=== PATIENT | female | born 1995 | race African-American/Black ===

== ENCOUNTER 2017-02-06 08:50 | Emergency (ER) | payer BC ==
[2017-02-06 09:02] VITALS: BP 116/71; PULSE 84; TEMP 98.4; BMI 24.4
--- NOTE | 2017-02-06 10:03 | PDOC ---
History of Present Illness - General Chief Complaint: Sore Throat Stated Complaint: SORE THROAT, HEADACHES (25 WKS ) Time Seen by Provider: 02/06/17 09:51 History Source: Patient Exam Limitations: No Limitations - History of Present Illness Initial Comments: 02/06/17 09:58 Patient is , no complaints of abdominal pain, drainage, or complication with but comes in with complaints of sore throat pain runny nose, general body aches. Denies fever, denies purulent drainage from nose, denies exudate on tonsils. No one at home is ill. Is not working now. His taken nothing for relief of symptoms. 02/06/17 13:27 Timing/Duration: unsure, 24 hours Severity: mild Associated Symptoms: reports: loss of appetite, malaise. denies: fever/chills, nausea/vomiting Past History - Travel Traveled outside of the country in the last 30 days: No Close contact w/someone who was outside of country & ill: No - Past Medical History Allergies/Adverse Reactions: Allergies Allergy/AdvReac Type Severity Reaction Status Date / Time No Known Allergies Allergy Verified 02/06/17 09:02 Home Medications: Ambulatory Orders NK [No Known Home Medication] 02/06/17 Asthma: Yes - Reproductive History (#): 1 Para: 0 Therapeutic (s) & number: No Spontaneous : 0 - Immunization History Immunization Up to Date: Yes - Psycho/Social/Smoking Cessation Hx Anxiety: No Suicidal Ideation: No Smoking Status: No Smoking History: Never smoked Number of Cigarettes Smoked Daily: 0 Information on smoking cessation initiated: No Hx Alcohol Use: No Drug/Substance Use Hx: No Substance Use Type: None Review of Systems - Review of Systems Able to Perform ROS?: Yes Is the patient limited [place] Verdean proficient: Yes Constitutional: Yes: Symptoms Reported, See HPI, Chills, Malaise HEENTM: Yes: Symptoms Reported, See HPI, Nose Congestion, Throat Pain Respiratory: Yes: Symptoms reported, See HPI, Cough (nonproductive). No: Shortness of Breath, Wheezing, Productive cough ABD/GI: No: Symptoms Reported : Yes: Symptoms Reported Musculoskeletal: No: Symptoms Reported Integumentary: Yes: Symptoms Reported Neurological: Yes: Symptoms reported, See HPI All Other Systems: Reviewed and Negative *Physical Exam - Vital Signs Last Vital Signs Temp Pulse Resp BP Pulse Ox 98.4 F 84 18 116/71 98 02/06/17 09:00 02/06/17 09:00 02/06/17 09:00 02/06/17 09:00 02/06/17 09:00 - Physical Exam General Appearance: Yes: Nourished, Appropriately Dressed, Apparent Distress, Mild Distress HEENT: positive: CHANEL, Normal ENT Inspection, Normal Voice, TMs Normal ( ingested but landmarks easily visualized), Pharynx Normal (no redness, swelling or exudate Airways patent, has some mild posterior sinus drainage that is whitish clear in color), Nasal Congestion (clear), Rhinorrhea. negative: Pharyngeal Erythema, Sinus Tenderness, TM Bulging Neck: positive: Supple. negative: Tender, Lymphadenopathy (R), Lymphadenopathy (L) Respiratory/Chest: positive: Lungs Clear. negative: Normal Breath Sounds, Crackles, Rales, Wheezing Cardiovascular: positive: Regular Rate Gastrointestinal/Abdominal: positive: Soft. 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 Will treat conservatively as patient is and has no evidence of bacterial infection. 02/06/17 13:30 *DC/Admit/Observation/Transfer Diagnosis at time of Disposition: Common cold virus - Discharge Dispostion Disposition: HOME Condition at time of disposition: Stable Admit: No - Referrals Referrals: Rudy Mtz MD [Primary Care Provider] - - Patient Instructions Printed Discharge Instructions: DI for Common Cold Additional Instructions: Rest, drink lots of fluids: Teas, water, soups, Pedialyte Saltwater gargles Steamy showers/seem to face break up mucus Avoid contact with others until fevers and cough resolved Lots of handwashing and good hygiene Continue [id number] medications for symptomatic relief Tylenol for fever and pain Followup with private physician in one to 2 days as needed Return to emergency department for worsened symptoms, fevers, dehydration
== END 2017-02-06 10:45 | disposition home or self-care (01) ==
LOC: JERFT 08:50
DX: J00 Acute nasopharyngitis [common cold] (principal); Z3A.25 25 weeks gestation of pregnancy
CPT/HCPCS: 99281-25

== ENCOUNTER 2017-08-04 23:30 | Emergency (ER) | payer BC ==
[2017-08-05] MEDS ORDERED: AZITHROMYCIN 250 MG TABLET PO STA (00:13)
--- NOTE | 2017-08-05 00:13 | PDOC ---
History of Present Illness - General History Source: Patient <Maurice Carranza - Last Filed: 08/05/17 00:15> - General History Source: Patient Exam Limitations: No Limitations - History of Present Illness Initial Comments: 08/05/17 00:21 The patient is a 22 year old female, with significant past medical history of asthma, who presents to the emergency room complaining of a 1day of a sore throat and a left ear ache. Denies nasal congestion. Denies fever, chills, nausea, vomiting. Denies cough, SOB. Denies sick contacts. Denies recent travel. The patient does not have a PCP. <Winifred Meadows - Last Filed: 08/05/17 00:24> - General Stated Complaint: SORE THROAT Time Seen by Provider: 08/05/17 00:13 Past History - Past Medical History Asthma: Yes - Reproductive History (#): 1 Para: 0 Therapeutic (s) & number: No Spontaneous : 0 - Immunization History Immunization Up to Date: Yes - Psycho/Social/Smoking Cessation Hx Anxiety: No Suicidal Ideation: No Smoking Status: No Smoking History: Never smoked Number of Cigarettes Smoked Daily: 0 Hx Alcohol Use: No Drug/Substance Use Hx: No Substance Use Type: None <CocoStaceyMaurice - Last Filed: 08/05/17 00:15> <Winifred Meadows - Last Filed: 08/05/17 00:24> - Past Medical History Allergies/Adverse Reactions: Allergies Allergy/AdvReac Type Severity Reaction Status Date / Time No Known Allergies Allergy Verified 08/05/17 00:20 Home Medications: Ambulatory Orders Azithromycin [Zithromax -] 250 mg PO UTDICT #6 tab 08/05/17 Review of Systems - Review of Systems Able to Perform ROS?: Yes Comments:: 08/05/17 00:22 CONSTITUTIONAL: Absent: fever, no chills, no fatigue EYES: Absent: visual changes ENT: Present: sore throat, left sided earache CARDIOVASCULAR: Absent: chest pain, no palpitations RESPIRATORY: Absent: cough, no SOB GI: Absent: abdominal pain, no nausea, no vomiting, no constipation, no diarrhea GENITOURINARY: Absent: dysuria, no frequency, no hematuria MUSCULOSKELETAL: Absent: back pain, no arthralgia, no myalgia SKIN: Absent: rash <Winifred Meadows - Last Filed: 08/05/17 00:24> *Physical Exam - Physical Exam Comments: 08/05/17 00:23 GENERAL: Well-appearing, well-nourished. No apparent distress. HEENT: +voice is hoarse. Tonsils are slightly erythematous. There is fluid in the lower portion of the left tympanic membrane. PERRL, EOM intact. CARDIOVASCULAR: Normal S1, S2. Regular rate and rhythm. PULMONARY: Clear to auscultation bilaterally. ABDOMEN: Soft, non-distended, non-tender. EXTREMITIES: Normal ROM in all four extremities. No gross deformities. SKIN: Warm, dry. No rash NEUROLOGICAL: No focal neurological deficits. <Winifred Meadows - Last Filed: 08/05/17 00:24> *DC/Admit/Observation/Transfer - Discharge Dispostion Admit: No <Maurice Carranza - Last Filed: 08/05/17 00:15> - Attestations Scribe Attestion: 08/05/17 00:23 Documentation prepared by HAL Loomis, acting as medical care evaluation specialist for Maurice Carranza MD. <Winifred Meadows - Last Filed: 08/05/17 00:24> Diagnosis at time of Disposition: Pharyngitis Qualifiers: Pharyngitis/tonsillitis etiology: other specified organisms Qualified Code(s): J02.8 - Acute pharyngitis due to other specified organisms - Prescriptions Prescriptions: Azithromycin [Zithromax -] 250 mg PO UTDICT #6 tab - Patient Instructions Printed Discharge Instructions: DI for Pharyngitis/Tonsillopharyngitis -- Adult
[2017-08-05] MEDS ORDERED: AZITHROMYCIN 250 MG TABLET ONE (00:22)
[2017-08-05 00:28] VITALS: BP 125/63; PULSE 67; TEMP 983.7; BMI 24.7
== END 2017-08-05 00:23 | disposition home or self-care (01) ==
LOC: JER 23:30
DX: J02.9 Acute pharyngitis, unspecified (principal)
CPT/HCPCS: 99281-25

== ENCOUNTER 2017-09-16 16:52 | Emergency (ER) | payer BC ==
[2017-09-16 17:01] VITALS: BP 118/63; PULSE 81; TEMP 98.4; BMI 25.7
--- NOTE | 2017-09-16 17:43 | PDOC ---
History of Present Illness - General Chief Complaint: Injury Stated Complaint: FALL INJURY Time Seen by Provider: 09/16/17 17:04 History Source: Patient Exam Limitations: No Limitations - History of Present Illness Initial Comments: 09/16/17 17:37 22 yr female slipped and fell on the floor injured her right hand today getting out of shower. no deformity or obvious swelling. 09/16/17 20:40 Past History - Past Medical History Allergies/Adverse Reactions: Allergies Allergy/AdvReac Type Severity Reaction Status Date / Time No Known Allergies Allergy Verified 09/16/17 17:01 Home Medications: Ambulatory Orders NK [No Known Home Medication] 09/16/17 Asthma: Yes - Reproductive History (#): 1 Para: 0 Therapeutic (s) & number: No Spontaneous : 0 - Immunization History Immunization Up to Date: Yes - Suicide/Smoking/Psychosocial Hx Smoking Status: No Smoking History: Never smoked Have you smoked in the past 12 months: No Number of Cigarettes Smoked Daily: 0 Hx Alcohol Use: No Drug/Substance Use Hx: No Substance Use Type: None Review of Systems - Review of Systems Able to Perform ROS?: Yes Is the patient limited Singaporean proficient: No Constitutional: No: Symptoms Reported HEENTM: No: Symptoms Reported Respiratory: No: Symptoms reported Cardiac (ROS): No: Symptoms Reported ABD/GI: No: Symptoms Reported : No: Symptoms Reported Musculoskeletal: Yes: Symptoms Reported *Physical Exam - Vital Signs Last Vital Signs Temp Pulse Resp BP Pulse Ox 98.4 F 81 20 118/63 100 09/16/17 16:57 09/16/17 16:57 09/16/17 16:57 09/16/17 16:57 09/16/17 16:57 - Physical Exam General Appearance: Yes: Nourished, Appropriately Dressed HEENT: positive: EOMI, CHANEL Neck: positive: Supple Respiratory/Chest: positive: Lungs Clear, Normal Breath Sounds Cardiovascular: positive: Regular Rhythm, Regular Rate Musculoskeletal: positive: Normal Inspection Extremity: positive: Normal Capillary Refill, Normal Inspection, Normal Range of Motion, Tender (base of fifth metatarsal nv intact FROM ) Integumentary: positive: Normal Color, Dry, Warm Neurologic: positive: Fully Oriented, Alert, Normal Mood/Affect, Normal Response , Motor Strength 5/5 ED Treatment Course - RADIOLOGY Radiology Studies Ordered: Category Date Time Status HAND- RIGHT [RAD] Stat Radiology 09/16/17 17:13 Ordered Medical Decision Making - Medical Decision Making 09/16/17 17:42 cc: right hand injury today slip and fall no deformity or swelling nv intact will get xray to r/o fracture 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 *DC/Admit/Observation/Transfer Diagnosis at time of Disposition: Contusion of hand, right Qualifiers: Encounter type: initial encounter Qualified Code(s): S60.221A - Contusion of right hand, initial encounter - Discharge Dispostion Disposition: HOME Condition at time of disposition: Good - Referrals Referrals: Rudy Mtz MD [Primary Care Provider] - Crow Foley MD [Staff Physician] - - Patient Instructions Additional Instructions: apply ice every 2-3hrs for 20 minutes for the next 2 days while awake this will help with pain and swelling take motrin as needed for pain (over the counter advil, ibuprofen or motrin) follow with the orthopedist if pain worsens
== END 2017-09-16 17:49 | disposition home or self-care (01) ==
LOC: JERFT 16:52
DX: S60.221A Contusion of right hand, initial encounter (principal); W01.0XXA Fall on same level from slipping, tripping and stumbling without subsequent striking against object, initial encounter; Y93.E1 Activity, personal bathing and showering; Y92.041 Bathroom in boarding-house as the place of occurrence of the external cause
CPT/HCPCS: 73130-TC-RT; 99281-25

== ENCOUNTER 2017-10-03 16:00 | Observation (INO) | payer BC ==
[2017-10-03 16:06] VITALS: BMI 25.3
[2017-10-03] MEDS ORDERED: SODIUM CHLORIDE 1,000 ML IV STA (17:01)
--- NOTE | 2017-10-03 17:17 | PDOC ---
History of Present Illness - General Chief Complaint: Syncope/Near Syncope Stated Complaint: NEAR SYNCOPE/SYNCOPE Time Seen by Provider: 10/03/17 16:39 History Source: Patient Exam Limitations: No Limitations - History of Present Illness Initial Comments: 10/03/17 17:12 Patient is a 22F with history of asthma and anemia here today complaining of two episodes of syncope. She states that around noon she was about to go to the bathroom before suddenly falling down and hitting her head on the toilet. Afterwards, she says that she developed a headache around her entire head. About an hour before presentation she says she was at work when she again syncopized. She again was down for a short period of time with no prodromal or post-ictal period. She says that she has had some shortness of breath and substernal chest tightness for the past four days. She takes OCPs. LMP 09/19. Past History - Past Medical History Allergies/Adverse Reactions: Allergies Allergy/AdvReac Type Severity Reaction Status Date / Time No Known Allergies Allergy Verified 10/03/17 16:01 Home Medications: Ambulatory Orders NK [No Known Home Medication] 09/16/17 Asthma: Yes - Reproductive History (#): 1 Para: 0 Therapeutic (s) & number: No Spontaneous : 0 - Immunization History Immunization Up to Date: Yes - Suicide/Smoking/Psychosocial Hx Smoking Status: No Smoking History: Never smoked Have you smoked in the past 12 months: No Number of Cigarettes Smoked Daily: 0 Hx Alcohol Use: No Drug/Substance Use Hx: No Substance Use Type: None Review of Systems - Review of Systems Comments:: 10/03/17 17:23 GENERAL/CONSTITUTIONAL: No fever or chills. No weakness. HEAD, EYES, EARS, NOSE AND THROAT: No change in vision. No sore throat. CARDIOVASCULAR: Positive for chest pain and shortness of breath. RESPIRATORY: No cough, wheezing, or hemoptysis. GASTROINTESTINAL: No nausea, vomiting, diarrhea or constipation. GENITOURINARY: No dysuria, frequency, or change in urination. MUSCULOSKELETAL: No joint or muscle swelling or pain. No neck or back pain. SKIN: No rash NEUROLOGIC: Positive for headache. Negative for vertigo, loss of consciousness, or change in strength/sensation. ENDOCRINE: No increased thirst. No abnormal weight change HEMATOLOGIC/LYMPHATIC: No anemia, easy bleeding, or history of blood clots. ALLERGIC/IMMUNOLOGIC: No hives or skin allergy. *Physical Exam - Vital Signs Last Vital Signs Temp Pulse Resp BP Pulse Ox 98.0 F 87 20 135/76 99 10/03/17 16:01 10/03/17 16:01 10/03/17 16:01 10/03/17 16:01 10/03/17 16:01 - Physical Exam Comments: 10/03/17 17:24 GENERAL: Awake, alert, and fully oriented, in no acute distress HEAD: No signs of trauma, normocephalic, atraumatic EYES: PERRLA, EOMI, sclera anicteric, conjunctiva clear ENT: Auricles normal inspection, hearing grossly normal, nares patent, oropharynx clear without exudates. Moist mucosa NECK: Normal ROM, supple, no lymphadenopathy, JVD, or masses LUNGS: No distress, speaks full sentences, clear to auscultation bilaterally HEART: Regular rate and rhythm, normal S1 and S2, no murmurs, rubs or gallops, peripheral pulses normal and equal bilaterally. ABDOMEN: Soft, tender in left and right lower quadrant, normoactive bowel sounds. No guarding, no rebound. No masses EXTREMITIES: Normal inspection, Normal range of motion, no edema. No clubbing or cyanosis. NEUROLOGICAL: Cranial nerves II through XII grossly intact. Normal speech, normal gait, no focal sensorimotor deficits SKIN: Warm, Dry, normal turgor, no rashes or lesions noted. ED Treatment Course - LABORATORY CBC & Chemistry Diagram: 10/03/17 17:35 10/03/17 17:35 - RADIOLOGY Radiology Studies Ordered: Category Date Time Status HEAD CT WITHOUT CONTRAST [CT] Stat CT Scan 10/03/17 17:08 Ordered CHEST X-RAY PORTABLE* [RAD] Stat Radiology 10/03/17 17:02 Ordered Medical Decision Making - Medical Decision Making 10/03/17 17:31 22F with history of anemia and asthma here today complaining of syncope. Concern that this is drop syncope given chest pain, headache, and shortness of breath. Vital signs stable and normal. Differential diagnosis includes, but is not limited to: vasovagal syncope, PE, arrhythmia. 10/03/17 17:35 EKG shows normal sinus rhythm, normal rate, normal qtc and pr intervals, normal axis and no st elevations or t-wave abnormalities. Reassuring EKG. 10/03/17 18:19 Laboratory Tests 10/03/17 10/03/17 10/03/17 17:35 17:35 17:35 WBC 5.0 D Hgb 11.5 Hct 34.8 Plt Count 309 INR BUN 11 Creatinine 1.1 H Random Glucose 62 L Urine HCG, Qual Negative 10/03/17 17:35 WBC Hgb Hct Plt Count INR 1.03 BUN Creatinine Random Glucose Urine HCG, Qual CBC normal. U preg neg. UA neg. CMP shows blood glucose of 62, otherwise normal. INR normal. Trop neg 10/03/17 18:24 CXR shows no acute cardiopulmonary process. *DC/Admit/Observation/Transfer Diagnosis at time of Disposition: Syncope and collapse - Referrals Referrals: Rudy Mtz MD [Primary Care Provider] - - Patient Instructions - Post Discharge Activity
[2017-10-03] MEDS ORDERED: ACETAMINOPHEN 325 MG TABLET (FP) PO ONE (17:18)
[2017-10-03] MEDS ORDERED: ACETAMINOPHEN 325 MG TABLET (FP) ONE (17:34)
--- NOTE | 2017-10-03 17:42 | PDOC ---
Attending Attestation - Resident Resident Name: RichardAlonso morales - ED Attending Attestation I have performed the following: I have examined & evaluated the patient, The case was reviewed & discussed with the resident, I agree w/resident's findings & plan, Exceptions are as noted - HPI HPI: 10/03/17 17:31 22-year-old female with history of asthma presents with syncope. The patient reports the last 4 days of feeling intermittent chest tightness short of breath but denies wheezing. Denies that the symptoms are like her asthma. Stated that yesterday approximately 1 PM, she was playing loud music and developed a gradual global tension-like headache that was constant. Denies any neck stiffness or fevers. Denies any neurological deficits. Stated that she was feeling generally unwell when she went to the bathroom today, she had a sudden episode of syncope that lasted a few seconds. She struck the side of her head and left side and she syncopized. Reported a worsening headache. Denies any further neurological deficits. Does not take anticoagulants. Again several hours later, she went to work and suddenly had a drop syncope episode. Denied any worsening chest pain or shortness of breath. Came into the ED for further evaluation. Patient does take oral contraceptive pills. - Physicial Exam PE: 10/03/17 17:33 GENERAL: Awake, alert, and fully oriented, in no acute distress. HEAD: No signs of trauma EYES: PERRLA, EOMI, sclera anicteric, conjunctiva clear ENT: Auricles normal inspection, hearing grossly normal, nares patent, oropharynx clear without exudates. NECK: Normal ROM, supple, no lymphadenopathy, JVD, or masses LUNGS: Breath sounds equal, clear to auscultation bilaterally. No wheezes, and no crackles HEART: Regular rate and rhythm, normal S1 and S2, no murmurs, rubs or gallops ABDOMEN: Mildly TTP RLQ and LLQ pain. No rebound, no guarding. Soft, normoactive bowel sounds. No guarding, no rebound. No masses EXTREMITIES: Normal range of motion, no edema. No clubbing or cyanosis. No cords, erythema, or tenderness NEUROLOGICAL: Cranial nerves II through XII intact. Normal speech, normal gait. 5/5 strength upper and lower extremities. Sensation intact throughout. No pronator drift. SKIN: Warm, Dry, normal turgor, no rashes or lesions noted. - Medical Decision Making 10/03/17 17:43 Vital Signs Temp Pulse Resp BP Pulse Ox 98.0 F 87 20 135/76 99 10/03/17 16:01 10/03/17 16:01 10/03/17 16:01 10/03/17 16:01 10/03/17 16:01 Patient has had 2 drops syncopal episodes concerning for potentially cardiac or pulmonology etiology. Given the patient is on oral contraceptives pills and with some intermittent chest tightness and syncope, we'll send a d-dimer to rule out pulmonary embolism. Given the patient has had a gradual headache, I have less suspicion for subarachnoid hemorrhage but given the persistent headache particularly after hitting her head, we'll obtain a head CT. We'll place patient on telemetry and ultimately admit the patient. I agree with the resident plan to obtain blood work including troponin and d-dimer. However, interestingly, the patient has lower abdominal discomfort. We'll need a urine test. We'll likely consider CAT scan the abdomen pelvis to rule out lower abdominal pathology. 10/03/17 19:54 CBC, BMP 10/03/17 17:35 10/03/17 17:35 CMP Sodium 139 mmol/L (136-145) 10/03/17 17:35 Potassium 4.1 mmol/L (3.5-5.1) 10/03/17 17:35 Chloride 107 mmol/L (98-107) 10/03/17 17:35 Carbon Dioxide 27 mmol/L (21-32) 10/03/17 17:35 Anion Gap 5 (8-16) L 10/03/17 17:35 BUN 11 mg/dL (7-18) 10/03/17 17:35 Creatinine 1.1 mg/dL (0.55-1.02) H 10/03/17 17:35 Creat Clearance w eGFR > 60 (>60) 10/03/17 17:35 Random Glucose 62 mg/dL (74-106) L 10/03/17 17:35 Calcium 8.7 mg/dL (8.5-10.1) 10/03/17 17:35 Magnesium 2.1 mg/dL (1.8-2.4) 10/03/17 17:35 Total Bilirubin 0.4 mg/dL (0.2-1.0) 10/03/17 17:35 AST 18 U/L (15-37) 10/03/17 17:35 ALT 21 U/L (12-78) 10/03/17 17:35 Alkaline Phosphatase 80 U/L (45-117) 10/03/17 17:35 Creatine Kinase 239 IU/L (26-192) H 10/03/17 17:35 Creatine Kinase Index 0.4 % (0.0-5.0) 10/03/17 17:35 CK-MB (CK-2) < 1.000 ng/mL (0.5-3.6) 10/03/17 17:35 Troponin I < 0.02 ng/ml (0.00-0.05) 10/03/17 17:35 Total Protein 7.7 g/dl (6.4-8.2) 10/03/17 17:35 Albumin 3.9 g/dl (3.4-5.0) 10/03/17 17:35 Urine Test Results Urine Color Yellow 10/03/17 17:35 Urine Appearance Slcloudy 10/03/17 17:35 Urine pH 5.0 (5.0-8.0) 10/03/17 17:35 Ur Specific Garrett 1.020 (1.001-1.035) 10/03/17 17:35 Urine Protein Negative (NEGATIVE) 10/03/17 17:35 Urine Glucose (UA) Negative (NEGATIVE) 10/03/17 17:35 Urine Ketones Negative (NEGATIVE) 10/03/17 17:35 Urine Blood Negative (NEGATIVE) 10/03/17 17:35 Urine Nitrite Negative (NEGATIVE) 10/03/17 17:35 Urine Bilirubin Negative (NEGATIVE) 10/03/17 17:35 ECG is reassuring. D-dimer negative. Pt's abdomen reassessed. No tenderness after tylenol. Will defer on abd imaging at this time. Will admit for tele obs for syncope. 10/03/17 20:[address] reviewed. Cannot r/o demyleinating disease. Consider MRI. Case discussed with [facility] hospitalist. Will admit to tele observation. Heart Score/ECG Review #1 ECG reviewed & interpreted by me at: 17:35 10/03/17 17:43 NSR 68, no std/denisse, TWI III, normal axis, normal intervals, QTC 401 msec, no brugada, no HOCM, no WPW
[2017-10-03 17:47] LABS: BASOPHIL 0.9 % (0-2.0); EOSINOPHIL 4.3 % (0-4.5); MCHC 32.9 g/dl (32.0-36.0); MEAN CELL VOLUME 84.9 fl (80-96); MEAN PLT VOLUME 9.1 fl (7.5-11.1); NEUTROPHILS 66.2 % (42.8-82.8); PLATELET COUNT 309 K/MM3 (134-434); RDW 13.9 % (11.6-15.6)
[2017-10-03 17:57] LABS: URINE APPEARANCE SLCLOUDY; URINE BILIRUBIN NEGATIVE (NEGATIVE); URINE BLOOD NEGATIVE (NEGATIVE); URINE COLOR YELLOW; URINE GLUCOSE (UA) NEGATIVE (NEGATIVE); URINE KETONE NEGATIVE (NEGATIVE); URINE NITRITE NEGATIVE (NEGATIVE); URINE PROTEIN NEGATIVE (NEGATIVE); URINE UROBILINOGEN NEGATIVE mg/dL (0.2-1.0)
[2017-10-03 18:09] LABS: INR 1.03 (0.82-1.09); PROTHROMBIN TIME (PATIENT) 11.6 SEC (9.98-11.88)
[2017-10-03 18:15] LABS: ALBUMIN 3.9 g/dl (3.4-5.0); ANION GAP 5 (8-16); BILIRUBIN,TOTAL 0.4 mg/dL (0.2-1.0); CALCIUM 8.7 mg/dL (8.5-10.1); CO2 27 mmol/L (21-32); CREATININE 1.1 mg/dL (0.55-1.02); GLUCOSE,RANDOM 62 mg/dL (74-106); MAGNESIUM 2.1 mg/dL (1.8-2.4); SGOT/AST 18 U/L (15-37); SGPT/ALT 21 U/L (12-78)
[2017-10-03 18:19] LABS: ALK PHOS 80 U/L (45-117); CPK 239 IU/L (26-192); TOT PROT 7.7 g/dl (6.4-8.2); TROPONIN I < 0.02 ng/ml (0.00-0.05)
--- NOTE | 2017-10-03 20:52 | PDOC ---
*Physical Exam - Vital Signs Last Vital Signs Temp Pulse Resp BP Pulse Ox 98.6 F 61 20 122/67 98 10/03/17 19:42 10/03/17 19:42 10/03/17 16:01 10/03/17 19:42 10/03/17 19:42 ED Treatment Course - LABORATORY CBC & Chemistry Diagram: 10/03/17 17:35 10/03/17 17:35 - ADDITIONAL ORDERS Additional order review: Laboratory Results 10/03/17 10/03/17 10/03/17 17:35 17:35 17:35 PT with INR 11.60 INR 1.03 D-Dimer 219 Sodium 139 Potassium 4.1 Chloride 107 Carbon Dioxide 27 Anion Gap 5 L BUN 11 Creatinine 1.1 H Creat Clearance w eGFR > 60 Random Glucose 62 L Calcium 8.7 Magnesium 2.1 Total Bilirubin 0.4 AST 18 ALT 21 Alkaline Phosphatase 80 Creatine Kinase 239 H Creatine Kinase Index 0.4 CK-MB (CK-2) < 1.000 Troponin I < 0.02 Total Protein 7.7 Albumin 3.9 Urine Color Urine Appearance Urine pH Ur Specific Gilman Urine Protein Urine Glucose (UA) Urine Ketones Urine Blood Urine Nitrite Urine Bilirubin Urine Urobilinogen Urine HCG, Qual Negative 10/03/17 17:35 PT with INR INR D-Dimer Sodium Potassium Chloride Carbon Dioxide Anion Gap BUN Creatinine Creat Clearance w eGFR Random Glucose Calcium Magnesium Total Bilirubin AST ALT Alkaline Phosphatase Creatine Kinase Creatine Kinase Index CK-MB (CK-2) Troponin I Total Protein Albumin Urine Color Yellow Urine Appearance Slcloudy Urine pH 5.0 Ur Specific Gilman 1.020 Urine Protein Negative Urine Glucose (UA) Negative Urine Ketones Negative Urine Blood Negative Urine Nitrite Negative Urine Bilirubin Negative Urine Urobilinogen Negative Urine HCG, Qual 10/03/17 17:35 RBC 4.10 MCV 84.9 MCHC 32.9 RDW 13.9 MPV 9.1 Neutrophils % 66.2 D Lymphocytes % 23.3 D Monocytes % 5.3 Eosinophils % 4.3 Basophils % 0.9 - Medications Given in the ED: ED Medications Discontinued Medications Generic Name Dose Route Start Last Admin Trade Name Freq PRN Reason Stop Dose Admin Acetaminophen 650 mg 10/03/17 17:18 10/03/17 17:36 Tylenol - PO 10/03/17 17:19 650 mg ONCE ONE Administration Sodium Chloride 1,000 mls @ 1,000 mls/hr 10/03/17 17:01 10/03/17 17:33 Normal Saline - IV 10/03/17 18:00 1,000 mls/hr ASDIR STA Administration *DC/Admit/Observation/Transfer Diagnosis at time of Disposition: Syncope and collapse, Abnormal head CT - Discharge Dispostion Condition at time of disposition: Stable Admit: Yes - Referrals Referrals: Rudy Mtz MD [Primary Care Provider] - - Patient Instructions - Post Discharge Activity
[2017-10-03 22:15] LABS: URINE LEUK ESTERASE TRACE (NEGATIVE)
--- NOTE | 2017-10-03 22:53 | PN ---
Teaching Attending Note Name of Resident: Linette Cooper ATTENDING PHYSICIAN STATEMENT I saw and evaluated the patient. Chart, data , imaging reviewed. I reviewed the resident's note and discussed the case with the resident. I agree with the resident's findings and plan as documented. SUBJECTIVE: 22-year-old female with s/p childbirth 4 months ago and mild intermittent asthma c/o syncope episodes x2. Pt reported LOC for about one minute this morning as she was about to use the restroom. Denied Valsava, palpitations, hx of seziures. She quickly regained consciousness afterwards. Her second episode of syncope later in the day around the time when she was going to work lasted for about 30 seconds. There was no tongue biting or post ictal state. Pt denied fevers, chills, nausea, or vomiting. Denied illicit drugs or etoh abuse. She does admit to being stressed out lately especially after childbirth. OBJECTIVE: Last Vital Signs Temp Pulse Resp BP Pulse Ox 98.6 F 61 20 122/67 98 10/03/17 19:42 10/03/17 19:42 10/03/17 16:01 10/03/17 19:42 10/03/17 19:42 General- NAD, appears comfortable HEENT - atraumatic, normocephalic, moist mucous membranes Neuro- exam wnl, speech fluent, no focal deficits noted CV-s1+s2+ RRR, no murmurs Chest- CTA b/l, no wheezing ext- no edema, clubbing, or cyanosis ekg - reviewed, nsr, no AV block, no st changes CT of head - no acute changes Abnormal Lab Results 10/03/17 10/03/17 17:35 17:35 Anion Gap 5 L Creatinine 1.1 H Random Glucose 62 L Creatine Kinase 239 H Ur Leukocyte Esterase Trace H ASSESSMENT AND PLAN: #Syncope - likely vasovagal or stress induced. No EKG changes and no evidence of seizures from history of physical exam. Head CT negative for acute, stroke, or mass. Underlying anemia may contribute. -admit to obs-telemetry -observe for 24hrs -gentle IV fluid hydration #Anemia -iron level -iron saturation -ferritin level #DVT ppx -SCDs #Diet -regular diet
--- NOTE | 2017-10-03 22:57 | HP ---
CHIEF COMPLAINT: syncope PCP: Rudy Mtz MD HISTORY OF PRESENT ILLNESS: 22yo young woman with no significant PMH except for well-controlled asthma and anemia during who presents with two episodes of syncope earlier today. Earlier today the patient was at her [employer] when she lost consciousness for about 1 minute while in the bathroom, and about to sit on the toilet. Denies straining or valsava. She denies any aura, change in vision, dizziness, numbness/tingling, diaphoresis or chest pain before or after the event. Denies any tongue biting, urinary or fecal incontinence. She describes having generalized weakness after the event, but was able to walk her dog briefly, and then went to work. As she was walking to work, she lost consciousness for about 30 seconds that was witness by a colleague. During the second episode she hit her head on the ground. As with the first event, she denies any tonic-clonic movements, post-ictal confusion, lethargy, tongue biting or incontinence. No prior episodes of fainting or seizures. No recent fever, chills, or infection symptoms. She does endorse "chest tightness" a few days that was worse during inhalation, and improved with Albuterol inhaler. Denies chest pain, palpiations or sob. No decreased PO intake. After the second episode she presented to the [facility] ED. While in the ED she c/o a headache and some diffuse lower abdominal pain, both of which improved with Tylenol. ER course was notable for: (1) non-con head CT negative for acute intracranial bleed; can not r/o demyelinating disease (2) test neg (3) d-dimer neg Recent Travel: none PAST MEDICAL HISTORY: -asthma - diagnosed as child, uses Albuterol PRN only when sick, no asthma related hospitalizations or intubations -anemia - was told she has Fe deficiency during her , does not take Fe supplements [employer]IN[employer] HISTORY: , son 4months old, LMP 09/19/17, on OCP PAST SURGICAL HISTORY: none Social History: lives at home with mother, son, and dog. works as [employer] in [email or web address] Smoking: denies Alcohol:denies Drugs: denies Family History: uncle with epilepsy, no h/o heart disease, diabetes, or stroke in family Allergies: NKDA HOME MEDICATIONS: OCPs REVIEW OF SYSTEMS CONSTITUTIONAL: +weakness Absent: fever, chills, diaphoresis, generalized weakness, malaise, loss of appetite, weight change HEENT: Absent: rhinorrhea, nasal congestion, throat pain, throat swelling, difficulty swallowing, mouth swelling, ear pain, eye pain, visual changes CARDIOVASCULAR: Absent: chest pain, syncope, palpitations, irregular heart rate, lightheadedness , peripheral edema RESPIRATORY: +chest tightness, improved with Ventolin Absent: cough, shortness of breath, dyspnea with exertion, orthopnea, wheezing, stridor, hemoptysis GASTROINTESTINAL: +abdominal pain Absent: abdominal pain, abdominal distension, nausea, vomiting, diarrhea, constipation, melena, hematochezia GENITOURINARY: Absent: dysuria, frequency, urgency, hesitancy, hematuria, flank pain, genital pain MUSCULOSKELETAL: Absent: myalgia, arthralgia, joint swelling, back pain, neck pain SKIN: Absent: rash, itching, pallor HEMATOLOGIC/IMMUNOLOGIC: Absent: easy bleeding, easy bruising, lymphadenopathy, frequent infections ENDOCRINE: Absent: unexplained weight gain, unexplained weight loss, heat intolerance, cold intolerance NEUROLOGIC: +Headache Absent: headache, focal weakness or paresthesias, dizziness, unsteady gait, seizure, mental status changes, bladder or bowel incontinence PSYCHIATRIC: Absent: anxiety, depression, suicidal or homicidal ideation, hallucinations. PHYSICAL EXAMINATION Vital Signs - 24 hr 10/03/17 10/03/17 16:01 19:42 Temperature 98.0 F 98.6 F Pulse Rate 87 Pulse Rate [ 61 Radial] Respiratory 20 Rate Blood Pressure 135/76 Blood Pressure 122/67 [Right Arm] O2 Sat by Pulse 99 98 Oximetry (%) GENERAL: aaox3, nad, lying comfortable in bed HEAD: Normal with no signs of trauma. EYES: PERRLA, EOMI, sclera anicteric, conjunctiva clear ENT: oropharynx clear without exudates. moist mucous membranes NECK: supple, no cervical LAD LUNGS: CTAB, no wheezing, rales or rhonchi HEART: rrr, normal S1/S2, no murmur, rub or gallop appreciated ABDOMEN: Soft, ntnd, no guarding, no rebound, no masses, no hepatosplenomegaly : no suprapubic tenderness UPPER EXTREMITIES: 2+ radial pulses, wwp, no peripheral edema LOWER EXTREMITIES: 2+ pulses, wwp, no calf tenderness, no edema NEUROLOGICAL: Cranial nerves II-XII intact. 5/5 motor strength in all 4 extremities, gross sensation intact and symmetric in all 4 extremities, no dysdiadochokinesis (FNF, rapid alternating hand movements intact), normal speech CBC, BMP 10/03/17 17:35 10/03/17 17:35 Hepatic Panel Total Bilirubin 0.4 mg/dL (0.2-1.0) 10/03/17 17:35 AST 18 U/L (15-37) 10/03/17 17:35 ALT 21 U/L (12-78) 10/03/17 17:35 Alkaline Phosphatase 80 U/L (45-117) 10/03/17 17:35 Albumin 3.9 g/dl (3.4-5.0) 10/03/17 17:35 Urine Test Results Urine Color Yellow 10/03/17 17:35 Urine Appearance Slcloudy 10/03/17 17:35 Urine pH 5.0 (5.0-8.0) 10/03/17 17:35 Ur Specific [place] 1.020 (1.001-1.035) 10/03/17 17:35 Urine Protein Negative (NEGATIVE) 10/03/17 17:35 Urine Glucose (UA) Negative (NEGATIVE) 10/03/17 17:35 Urine Ketones Negative (NEGATIVE) 10/03/17 17:35 Urine Blood Negative (NEGATIVE) 10/03/17 17:35 Urine Nitrite Negative (NEGATIVE) 10/03/17 17:35 Urine Bilirubin Negative (NEGATIVE) 10/03/17 17:35 Ur Leukocyte Esterase Trace (NEGATIVE) H 10/03/17 17:35 Laboratory Tests 10/03/17 10/03/17 17:35 17:35 D-Dimer 219 Creatine Kinase 239 H Creatine Kinase Index 0.4 CK-MB (CK-2) < 1.000 Troponin I < 0.02 IMAGING: EKG: NSR 68, no std/denisse, TWI III, normal axis, normal intervals, QTC 401 msec, no brugada, no HOCM, no WPW Non-con Head CT (10/03/17): FINDINGS: There is no evidence of intra or extra-axial hemorrhage, mass effect or midline shift. The ramos- white mater differentiation is grossly preserved. The sulcal pattern and ventricular systems are within normal limits. There are a few scattered areas of white matter subcortical lucencies without mass effect. Evaluation of the inferior aspect of the frontal, middle and posterior fossa is limited due to streak artifacts. The visualized portions of the bony skull, mastoid air cells and paranasal sinuses are unremarkable. IMPRESSION: No CT evidence of acute intracranial pathology. Few scattered white matter subcortical white matter lucencies without mass effect are nonspecific. Further evaluation with MRI is suggested to exclude demyelinating process. CXR (10/03/17): Both lung ackerman are clear. There is no infiltrate, consolidation or mass. There is no pleural effusion or pneumothorax. The cardiomediastinal silhouette and both rhett are unremarkable. The visualized osseous structures are unremarkable. IMPRESSION: No acute lung infiltrate ASSESSMENT/PLAN: 22yo young woman with PMH of well controlled asthma and anemia presents with 2 episodes of syncope of unclear etiology. Although differential is broad, high on the ddx includes vasovagal, seizure, arrhythmia, and PE. Vasovagal high on the differential given age, and no focal neurological deficits. Cardiac etiology less likely due to negative troponin and normal EKG (no e/o HOCM, arrhythmia). Physical exam unremarkable neurologically, and history not consistent with seizures. Although c/o chest tightness worse during inhalation, and on OCPs, there is low pre-test probability (Well's Score of 0) and d-dimer wnl, making PE unlikely. #Syncope -admit to obs-telemetry, observe for 24hrs -consider MRI if further syncopal events -gentle IV fluid hydration -orthostatics #hypoglycemia (BG 62) -BGM q6h #elevated Cr, baseline unknown, ?SHIVA -Repeat BMP -gentle hydration #FEN -NS @ 42cc/hr -lytes wnl -Regular diet #PPX -DVT - scd's bilaterally -GI ppx not indicated #DISPO - obs tele FULL CODE d/w Dr. Mile Cooper MD PGY-1 Visit type - Emergency Visit Emergency Visit: Yes ED Registration Date: 10/03/17 Care time: The patient presented to the Emergency Department on the above date and was hospitalized for further evaluation of their emergent condition. - New Patient This patient is new to me today: Yes Date on this admission: 10/04/17 - Critical Care Critical Care patient: No
[2017-10-04 00:36] LABS: URINE BACTERIA 1+ /hpf (NEGATIVE); URINE MUCUS 1+; URINE RBC 0-3 /hpf (0-3); URINE WBC 0-3 (0-5)
[2017-10-04] MEDS ORDERED: SODIUM CHLORIDE 1,000 ML IV SCH (01:15)
[2017-10-04] MEDS ORDERED: HEMOQUE TEST 1 EACH EACH ONE (01:39)
[2017-10-04 07:07] LABS: ANION GAP 7 (8-16); CO2 24 mmol/L (21-32); GLUCOSE,RANDOM 84 mg/dL (74-106)
[2017-10-04 07:09] LABS: CREATININE 0.8 mg/dL (0.55-1.02)
[2017-10-04 11:28] VITALS: TEMP 98.3
--- NOTE | 2017-10-04 12:35 | DS ---
Physical Exam: SUBJECTIVE: Patient seen and examined OBJECTIVE: Vital Signs Period Temp Pulse Resp BP Sys/Segundo Pulse Ox Last 24 Hr 98.0 F-98.7 F 58-87 17-20 103-135/51-76 98-99 PHYSICAL EXAM GENERAL: The patient is awake, alert, and fully oriented, in no acute distress. HEAD: Normal with no signs of trauma. EYES: PERRL, extraocular movements intact, sclera anicteric, conjunctiva clear. ENT: Ears normal, nares patent, oropharynx clear without exudates, moist mucous membranes. NECK: Trachea midline, full range of motion, supple. LUNGS: Breath sounds equal, clear to auscultation bilaterally, no wheezes, no crackles, no accessory muscle use. HEART: Regular rate and rhythm, S1, S2 without murmur, rub or gallop. ABDOMEN: Soft, nontender, nondistended, normoactive bowel sounds, no guarding, no rebound, no hepatosplenomegaly, no masses. EXTREMITIES: 2+ pulses, warm, well-perfused, no edema. NEUROLOGICAL: Cranial nerves II through XII grossly intact. Normal speech, gait not observed. PSYCH: Normal mood, normal affect. SKIN: Warm, dry, normal turgor, no rashes or lesions noted. LABS Laboratory Results - last 24 hr 10/03/17 10/03/17 10/03/17 17:35 17:35 17:35 WBC 5.0 D RBC 4.10 Hgb 11.5 Hct 34.8 MCV 84.9 MCH 28.0 MCHC 32.9 RDW 13.9 Plt Count 309 MPV 9.1 Neutrophils % 66.2 D Lymphocytes % 23.3 D Monocytes % 5.3 Eosinophils % 4.3 Basophils % 0.9 PT with INR INR D-Dimer Sodium 139 Potassium 4.1 Chloride 107 Carbon Dioxide 27 Anion Gap 5 L BUN 11 Creatinine 1.1 H Creat Clearance w eGFR > 60 Random Glucose 62 L Calcium 8.7 Magnesium 2.1 Total Bilirubin 0.4 AST 18 ALT 21 Alkaline Phosphatase 80 Creatine Kinase 239 H Creatine Kinase Index 0.4 CK-MB (CK-2) < 1.000 Troponin I < 0.02 Total Protein 7.7 Albumin 3.9 TSH Urine Color Yellow Urine Appearance Slcloudy Urine pH 5.0 Ur Specific [place] 1.020 Urine Protein Negative Urine Glucose (UA) Negative Urine Ketones Negative Urine Blood Negative Urine Nitrite Negative Urine Bilirubin Negative Urine Urobilinogen Negative Ur Leukocyte Esterase Trace H Urine RBC 0-3 Urine WBC 0-3 Ur Epithelial Cells 2+ Urine Bacteria 1+ Urine Mucus 1+ Urine HCG, Qual 10/03/17 10/03/17 10/04/17 17:35 17:35 06:20 WBC RBC Hgb Hct MCV MCH MCHC RDW Plt Count MPV Neutrophils % Lymphocytes % Monocytes % Eosinophils % Basophils % PT with INR 11.60 INR 1.03 D-Dimer 219 Sodium Potassium Chloride Carbon Dioxide Anion Gap BUN Creatinine Creat Clearance w eGFR Random Glucose Calcium Magnesium Total Bilirubin AST ALT Alkaline Phosphatase Creatine Kinase Creatine Kinase Index CK-MB (CK-2) Troponin I Total Protein Albumin TSH 1.87 Urine Color Urine Appearance Urine pH Ur Specific [place] Urine Protein Urine Glucose (UA) Urine Ketones Urine Blood Urine Nitrite Urine Bilirubin Urine Urobilinogen Ur Leukocyte Esterase Urine RBC Urine WBC Ur Epithelial Cells Urine Bacteria Urine Mucus Urine HCG, Qual Negative 10/04/17 06:30 WBC RBC Hgb Hct MCV MCH MCHC RDW Plt Count MPV Neutrophils % Lymphocytes % Monocytes % Eosinophils % Basophils % PT with INR INR D-Dimer Sodium 139 Potassium 4.0 Chloride 108 H Carbon Dioxide 24 Anion Gap 7 L BUN 11 Creatinine 0.8 D Creat Clearance w eGFR Random Glucose 84 D Calcium 8.0 L Magnesium Total Bilirubin AST ALT Alkaline Phosphatase Creatine Kinase Creatine Kinase Index CK-MB (CK-2) Troponin I Total Protein Albumin TSH Urine Color Urine Appearance Urine pH Ur Specific [place] Urine Protein Urine Glucose (UA) Urine Ketones Urine Blood Urine Nitrite Urine Bilirubin Urine Urobilinogen Ur Leukocyte Esterase Urine RBC Urine WBC Ur Epithelial Cells Urine Bacteria Urine Mucus Urine HCG, Qual HOSPITAL COURSE: Date of Admission:10/03/17 Date of Discharge: 10/04/17 Discharge Summary Reason For Visit: NEAR SYNCOPE/SYNCOPE Current Active Problems Abnormal head CT (Acute) Syncope and collapse (Acute) Condition: Stable - Instructions Diet, Activity, Other Instructions: Please return to the ED for any new, persistent, or worsening symptoms. Follow up with your PCP in 1 week Neurology referral enclosed for baseline establishment. 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
[2017-10-04 12:48] VITALS: BP 108/56; PULSE 63
--- NOTE | 2017-10-04 15:28 | EKG ---
Test Reason : Blood Pressure : / mmHG Vent. Rate : 068 BPM Atrial Rate : 068 BPM P-R Int : 148 ms QRS Dur : 068 ms QT Int : 378 ms P-R-T Axes : 049 056 028 degrees QTc Int : 401 ms NORMAL SINUS RHYTHM NORMAL ECG NO PREVIOUS ECGS AVAILABLE NO CLINICAL INFORMATION IS AVAILABLE Confirmed by MIKI BORREGO MD ([id number]) on 10/04/2017 3:28:07 PM Referred By: Confirmed By:MIKI BORREGO MD
== END 2017-10-04 13:10 | disposition home or self-care (01) ==
LOC: JER 16:00 → JERBED 20:52
PROVIDERS: ADMIT Internal Medicine; ATTEND Nurse Practitioner Acute Care
PROC: 3E0337Z Introduction of Electrolytic and Water Balance Substance into Peripheral Vein, Percutaneous Approach (ICD-10-PCS; principal; 2017-10-03)
DX: R55 Syncope and collapse (principal); J45.20 Mild intermittent asthma, uncomplicated; D64.9 Anemia, unspecified; S09.90XA Unspecified injury of head, initial encounter; E16.2 Hypoglycemia, unspecified; R79.89 Other specified abnormal findings of blood chemistry; R93.0 Abnormal findings on diagnostic imaging of skull and head, not elsewhere classified; W18.39XA Other fall on same level, initial encounter; Y93.89 Activity, other specified; Y92.091 Bathroom in other non-institutional residence as the place of occurrence of the external cause
CPT/HCPCS: 36415; 70450-TC; 70551-TC; 71010-TC; 80048; 80053; 81003; 81015; 82550; 82553; 83735; 84443; 84484; 84703; 85025; 85379; 85610; 93005; 93010; 99285-25; G0378

== ENCOUNTER 2021-08-14 20:41 | Emergency (ER) | payer BC ==
[2021-08-14 21:08] VITALS: BP 116/80; PULSE 78; TEMP 98.2; BMI 21.7
[2021-08-14] MEDS ORDERED: SODIUM CHLORIDE 0.9% 500 ML INFUS.BAG IV ONE (22:27)
[2021-08-14] MEDS ORDERED: morphine CARPU-JECT 2 MG/1 ML DISP.SYRIN IVPUSH ONE (22:28)
[2021-08-14] MEDS ORDERED: MORPHINE SULFATE 2 MG/ML VIAL ONE (23:05)
[2021-08-14 23:15] LABS: BASO % 1.2 % (0-2.0); EOS % 1.5 % (0-4.5); HEMATOCRIT 34.4 % (32.4-45.2); HEMOGLOBIN 11.3 GM/dL (10.7-15.3); LYMPH % 31.4 % (8-40); MCHC 32.9 g/dl (32.0-36.0); MEAN CELL VOLUME 91.2 fl (80-96); MEAN PLT VOLUME 9.9 fl (7.5-11.1); MONO % 6.2 % (3.8-10.2); NEUT % 59.7 % (42.8-82.8); PLATELET COUNT 251 10^3/uL (134-434); RBC 3.78 M/mm3 (3.60-5.2); RDW 16.6 % (11.6-15.6); WHITE BLOOD COUNT 4.7 K/mm3 (4.0-10.0)
[2021-08-14 23:44] LABS: CHLORIDE 106 mmol/L (98-107); SODIUM 127 mmol/L (136-145)
[2021-08-14 23:48] LABS: ALBUMIN 3.7 g/dl (3.4-5.0); BLOOD UREA NITROGEN 11.6 mg/dL (7-18); CALCIUM 8.4 mg/dL (8.5-10.1); CO2 24 mmol/L (21-32); GLUCOSE,RANDOM 74 mg/dL (74-106); LIPASE 21 U/L (73-393)
[2021-08-14 23:51] LABS: CREATININE 0.8 mg/dL (0.55-1.3)
[2021-08-14 23:53] LABS: BILIRUBIN,TOTAL 0.5 mg/dL (0.2-1); TOT PROT 8.6 g/dl (6.4-8.2)
[2021-08-14 23:54] LABS: ALK PHOS 62 U/L (45-117)
[2021-08-15 00:19] LABS: EPI CELLS 27 /uL (0-25.1); HYALINE CASTS 2 /uL (0-3.1); URINE APPEARANCE CLEAR; URINE BACTERIA 297 /uL (0-1359); URINE BILIRUBIN NEGATIVE (NEGATIVE); URINE COLOR YELLOW; URINE GLUCOSE (UA) NEGATIVE (NEGATIVE); URINE KETONE 1+ (NEGATIVE); URINE LEUK ESTERASE NEGATIVE (NEGATIVE); URINE NITRITE NEGATIVE (NEGATIVE); URINE PROTEIN 1+ (NEGATIVE); URINE RBC 895 /uL (0-23.9); URINE WBC 12 /uL (0-25.8)
[2021-08-15 00:24] LABS: ANION GAP -3 MMOL/L (8-16); SGOT/AST 114 U/L (15-37); SGPT/ALT 25 U/L (13-61)
[2021-08-15 01:52] LABS: CALCIUM 7.6 mg/dL (8.5-10.1)
[2021-08-15 01:53] LABS: BLOOD UREA NITROGEN 9.6 mg/dL (7-18)
[2021-08-15 01:56] LABS: CREATININE 0.7 mg/dL (0.55-1.3)
== END 2021-08-15 01:46 | disposition left against medical advice (07) ==
LOC: JER 20:41
PROC: 3E033NZ Introduction of Analgesics, Hypnotics, Sedatives into Peripheral Vein, Percutaneous Approach (ICD-10-PCS; principal; 2021-08-14)
DX: R10.84 Generalized abdominal pain (principal)
CPT/HCPCS: 36415; 74177-TC; 80048; 80053; 81003; 83690; 84703; 85025; 87086; 99285-25

== ENCOUNTER 2023-08-10 08:48 | Emergency (ER) | payer BC ==
[2023-08-10 09:01] VITALS: BP 106/75; PULSE 66; RESP 18; TEMP 98.3; BMI 24.6
[2023-08-10] MEDS ORDERED: IBUPROFEN 400 MG TABLET (FP) PO ONE ×2 (09:43→09:45)
== END 2023-08-10 10:21 | disposition home or self-care (01) ==
LOC: JER 08:48 → JERFT 08:48 → JER 10:21
DX: R05.1 Acute cough (principal); R09.81 Nasal congestion; Z20.822 Contact with and (suspected) exposure to COVID-19
CPT/HCPCS: 0241U-QW; 99283-25

== ENCOUNTER 2023-09-08 08:15 | Emergency (ER) | payer BC ==
[2023-09-08 08:33] VITALS: BP 106/64; PULSE 72; RESP 18; TEMP 98.2; BMI 24.6
== END 2023-09-08 10:00 | disposition home or self-care (01) ==
LOC: JER 08:15
DX: J02.9 Acute pharyngitis, unspecified (principal); H92.01 Otalgia, right ear; R05.9 Cough, unspecified; R68.83 Chills (without fever); R11.10 Vomiting, unspecified; Z20.822 Contact with and (suspected) exposure to COVID-19
CPT/HCPCS: 0241U-QW; 99283-25

== ENCOUNTER 2023-09-14 08:20 | Emergency (ER) | payer BC ==
[2023-09-14 08:42] VITALS: BP 115/72; PULSE 75; RESP 17; TEMP 97.7; BMI 24.6
[2023-09-14] MEDS ORDERED: ONDANSETRON 4 MG/2 ML VIAL IVPUSH ONE (09:33)
[2023-09-14] MEDS ORDERED: ACETAMINOPHEN 1000 MG/100 ML BAG IVPB ONE (09:33)
[2023-09-14] MEDS ORDERED: SODIUM CHLORIDE 1,000 ML IV STA (09:33)
[2023-09-14] MEDS ORDERED: FAMOTIDINE 20 MG/50 ML IVPB 20 MG/50 ML MG IVPB ONE ×2 (09:33→09:36)
[2023-09-14] MEDS ORDERED: ACETAMINOPHEN INJECTION 100 ML IVPB ONE (09:36)
[2023-09-14] MEDS ORDERED: ONDANSETRON 4 MG/2 ML VIAL ONE (09:36)
[2023-09-14 10:20] LABS: BASO % 1.3 % (0-2.0); EOS % 2.7 % (0-4.5); HEMATOCRIT 37.6 % (32.4-45.2); LYMPH % 33.9 % (8-40); MCH 32.2 pg (25.7-33.7); MCHC 34.5 g/dl (32.0-36.0); MEAN CELL VOLUME 93.3 fl (80-96); MEAN PLT VOLUME 9.2 fl (7.5-11.1); MONO % 7.7 % (3.8-10.2); NEUT % 54.4 % (42.8-82.8); PLATELET COUNT 256 10^3/uL (134-434); RBC 4.03 M/mm3 (3.60-5.2); RDW 14.3 % (11.6-15.6); WHITE BLOOD COUNT 4.1 K/mm3 (4.0-10.0)
[2023-09-14 10:23] LABS: EPI CELLS >36 /uL (0-25.1); HCG,QUALITATIVE URINE Negative; HYALINE CASTS 0 /uL (0-3.1); URINE APPEARANCE CLOUDY; URINE BACTERIA 1235 /uL (0-1359); URINE BILIRUBIN NEGATIVE (NEGATIVE); URINE COLOR YELLOW; URINE GLUCOSE (UA) NEGATIVE (NEGATIVE); URINE KETONE NEGATIVE (NEGATIVE); URINE LEUK ESTERASE TRACE (NEGATIVE); URINE NITRITE NEGATIVE (NEGATIVE); URINE PROTEIN NEGATIVE (NEGATIVE); URINE RBC 20 /uL (0-23.9); URINE WBC 35 /uL (0-25.8)
[2023-09-14 10:33] LABS: POTASSIUM 4.5 mmol/L (3.5-5.1)
[2023-09-14 10:34] LABS: CALCIUM 8.5 mg/dL (8.5-10.1)
[2023-09-14 10:34] LABS: INR 1.08 (0.83-1.09); PROTHROMBIN TIME (PATIENT) 12.5 SEC (9.7-13.0)
[2023-09-14 10:35] LABS: BLOOD UREA NITROGEN 15.1 mg/dL (7-18)
[2023-09-14 10:36] LABS: ACTIVATED PTT 31.7 SECONDS (25.2-36.5)
[2023-09-14 10:38] LABS: CREATININE 0.9 mg/dL (0.55-1.3)
[2023-09-14 10:39] LABS: BILIRUBIN,TOTAL 0.4 mg/dL (0.2-1); TOT PROT 7.5 g/dl (6.4-8.2)
[2023-09-14] MEDS ORDERED: CEPHALEXIN MONOHYDRATE 500 MG CAPSULE (UD) PO ONE (11:49)
[2023-09-14] MEDS ORDERED: CEPHALEXIN MONOHYDRATE 500 MG CAPSULE (UD) ONE (11:53)
== END 2023-09-14 11:58 | disposition home or self-care (01) ==
LOC: JER 08:20
PROC: 3E033GC Introduction of Other Therapeutic Substance into Peripheral Vein, Percutaneous Approach (ICD-10-PCS; principal; 2023-09-14)
PROC: 3E033NZ Introduction of Analgesics, Hypnotics, Sedatives into Peripheral Vein, Percutaneous Approach (ICD-10-PCS; 2023-09-14)
PROC: 3E033GC Introduction of Other Therapeutic Substance into Peripheral Vein, Percutaneous Approach (ICD-10-PCS; 2023-09-14)
PROC: 3E0337Z Introduction of Electrolytic and Water Balance Substance into Peripheral Vein, Percutaneous Approach (ICD-10-PCS; 2023-09-14)
DX: J02.9 Acute pharyngitis, unspecified (principal); R05.9 Cough, unspecified; R11.10 Vomiting, unspecified; K80.20 Calculus of gallbladder without cholecystitis without obstruction; N39.0 Urinary tract infection, site not specified; R31.9 Hematuria, unspecified; Z20.822 Contact with and (suspected) exposure to COVID-19
CPT/HCPCS: 0241U-QW; 36415; 76705-TC; 80053; 81003; 83690; 84703; 85025; 85610; 85730; 87651; 99284-25

== ENCOUNTER 2023-12-25 08:19 | Emergency (ER) | payer BC ==
[2023-12-25 08:43] VITALS: BP 122/85; PULSE 67; RESP 18; TEMP 98; BMI 24.4
[2023-12-25 10:23] LABS: THROAT:GRP A STREP NOT DETECTED (NOTDETECTED)
== END 2023-12-25 11:22 | disposition home or self-care (01) ==
LOC: JERFT 08:19
DX: J02.9 Acute pharyngitis, unspecified (principal); J00 Acute nasopharyngitis [common cold]; R09.81 Nasal congestion; H92.02 Otalgia, left ear; R05.9 Cough, unspecified; Z20.822 Contact with and (suspected) exposure to COVID-19
CPT/HCPCS: 0241U-QW; 87651; 99283-25

== ENCOUNTER 2024-03-08 11:29 | Emergency (ER) | payer BC ==
[2024-03-08 11:38] VITALS: BP 140/84; PULSE 75; RESP 20; TEMP 97.6; BMI 24.0
[2024-03-08] MEDS: ACETAMINOPHEN 1000 MG/100 ML BAG IVPB ONE (12:15)
[2024-03-08] MEDS: SODIUM CHLORIDE 0.9% 500 ML INFUS.BAG IV ONE (12:15)
[2024-03-08] MEDS ORDERED: ACETAMINOPHEN INJECTION 100 ML IVPB ONE (12:23)
[2024-03-08 12:42] LABS: BASO % 0.7 % (0-2.0); EOS % 1.9 % (0-4.5); HEMATOCRIT 39.7 % (32.4-45.2); HEMOGLOBIN 12.9 GM/dL (10.7-15.3); MCH 31.7 pg (25.7-33.7); MCHC 32.4 g/dl (32.0-36.0); MEAN CELL VOLUME 97.6 fl (80-96); MEAN PLT VOLUME 8.6 fl (7.5-11.1); MONO % 5.1 % (3.8-10.2); NEUT % 71.3 % (42.8-82.8); PLATELET COUNT 248 10^3/uL (134-434); RBC 4.07 M/mm3 (3.60-5.2); RDW 15.5 % (11.6-15.6); WHITE BLOOD COUNT 6.4 K/mm3 (4.0-10.0)
[2024-03-08 13:14] LABS: CHLORIDE 102 mmol/L (98-107)
[2024-03-08 13:15] LABS: CALCIUM 7.6 mg/dL (8.5-10.1)
[2024-03-08 13:16] LABS: ALBUMIN 3.7 g/dl (3.4-5.0); CO2 25 mmol/L (21-32); GLUCOSE,RANDOM 81 mg/dL (74-106)
[2024-03-08 13:22] LABS: ALK PHOS 70 U/L (45-117)
[2024-03-08 14:02] LABS: EPI CELLS >36 /uL (0-25.1); HYALINE CASTS 0 /uL (0-3.1); URINE APPEARANCE CLOUDY; URINE BACTERIA 1107 /uL (0-1359); URINE BILIRUBIN NEGATIVE (NEGATIVE); URINE COLOR YELLOW; URINE GLUCOSE (UA) NEGATIVE (NEGATIVE); URINE KETONE NEGATIVE (NEGATIVE); URINE LEUK ESTERASE NEGATIVE (NEGATIVE); URINE NITRITE NEGATIVE (NEGATIVE); URINE PROTEIN TRACE (NEGATIVE); URINE RBC 178 /uL (0-23.9); URINE WBC 29 /uL (0-25.8)
[2024-03-08 14:20] LABS: ANION GAP -16 mmol/L (4-13); POTASSIUM > 10.0 mmol/L (3.5-5.1); SODIUM 112 mmol/L (136-145)
[2024-03-08] MEDS ORDERED: KETOROLAC TROMETHAMINE 30 MG/1 ML VIAL ONE (14:43)
[2024-03-08] MEDS: KETOROLAC TROMETHAMINE 30 MG/1 ML VIAL IVPUSH ONE (14:53)
[2024-03-08 15:37] LABS: CALCIUM 8.3 mg/dL (8.5-10.1)
[2024-03-08 15:38] LABS: ALBUMIN 3.8 g/dl (3.4-5.0)
[2024-03-08 15:41] LABS: CREATININE 0.9 mg/dL (0.55-1.3)
[2024-03-08 15:43] LABS: BILIRUBIN,TOTAL 0.6 mg/dL (0.2-1)
[2024-03-08 15:46] LABS: TOT PROT 6.9 g/dl (6.4-8.2)
[2024-03-08] MEDS ORDERED: TAMSULOSIN HCL 0.4 MG CAP ONE (16:35)
[2024-03-08] MEDS: TAMSULOSIN HCL 0.4 MG CAP PO ONE (16:40)
== END 2024-03-08 17:13 | disposition home or self-care (01) ==
LOC: JER 11:29
DX: R31.9 Hematuria, unspecified (principal); R30.0 Dysuria; R10.30 Lower abdominal pain, unspecified; N20.1 Calculus of ureter
CPT/HCPCS: 36415; 74176-TC; 80053; 81003; 84703; 85025; 87086; 99284-25; J0131

== ENCOUNTER 2024-07-31 08:14 | Emergency (ER) | payer BC ==
[2024-07-31 08:23] VITALS: BP 122/90; PULSE 76; RESP 18; TEMP 98; BMI 24.7
[2024-07-31] MEDS ORDERED: DIPHTH,PERTUSS(ACELL),TET 0.5 ML DISP.SYRIN IM ONE (08:54)
[2024-07-31] MEDS: DIPHTH,PERTUSS(ACELL),TET 0.5 ML DISP.SYRIN IM ONE (08:57)
== END 2024-07-31 09:25 | disposition home or self-care (01) ==
LOC: JER 08:14
PROC: 3E0234Z Introduction of Serum, Toxoid and Vaccine into Muscle, Percutaneous Approach (ICD-10-PCS; principal; 2024-07-31)
DX: S00.211A Abrasion of right eyelid and periocular area, initial encounter (principal); W26.8XXA Contact with other sharp object(s), not elsewhere classified, initial encounter; Z23 Encounter for immunization
CPT/HCPCS: 90715; 99284-25